=== PATIENT | male | born 1955 | race American Indian/Alaskan Native ===

== ENCOUNTER 2019-10-06 06:18 | Day surgery (SDC) | payer OTHER ==
[2019-10-06] MEDS ORDERED: SODIUM CHLORIDE 0.9% 1000 ML 1,000 ML IV SCH (07:00)
[2019-10-06] MEDS ORDERED: WATER FOR IRRIG STERILE 250 ML BOTTLE IR ONE (07:53)
--- NOTE | 2019-10-06 07:57 | Anesthesia Consultation ---
Anesthesia Consult and Med Hx Date of service: 10/06/19 - Airway Anesthetic Teeth Evaluation: Dentures ROM Head & Neck: Adequate Mental/Hyoid Distance: Adequate Mallampati Class: Class II Intubation Access Assessment: Probably Good - Pulmonary Exam CTA: Yes - Cardiac Exam Cardiac Exam: RRR - Pre-Operative Health Status ASA Pre-Surgery Classification: ASA2 Proposed Anesthetic Plan: MAC - Pulmonary Hx Smoking: No Hx Sleep Apnea: No (Snores heavily) - Cardiovascular System Hx Hypertension: No Hx Cardia Arrhythmia: No - Central Nervous System Hx Neuromuscular Disorder: No Hx Psychiatric Problems: No - Endocrine Hx Renal Disease: No Hx Insulin Dependent Diabetes: No Hx Non-Insulin Dependent Diabetes: No (Denies condition. Blood gucose- 140mg/dl) - Hematic Hx Anemia: No - Other Systems Hx Alcohol Use: Yes (Sparingly) Hx Substance Use: No Hx Obesity: Yes (BMI 42.3kg) - Additional Comments Anesthesia Medical History Comments: Patient denies previous anesthesia related complications.
--- NOTE | 2019-10-06 08:03 | Anesthesia Day of Surgery ---
Anesthesia Day of Surgery - Day of Surgery Patient Examined: No Patient H&P Reviewed: No Patient is NPO: No
[2019-10-06] MEDS ORDERED: PROPOFOL 200 MG/20 ML VIAL IV ONE ×2 (08:46)
[2019-10-06] MEDS ORDERED: LIDOCAINE (2%) 20 MG/1 ML VIAL 20 ML MDV INFILTRATI ONE (08:46)
--- NOTE | 2019-10-06 09:11 | Short Stay Summary ---
Short Stay Documentation Date of service: 10/06/19 Narrative H&P: Patient presents for screening colonoscopy. Denies gi complaints or prior colonoscopy. - History Past Medical History: other (no changes from office note) Past Surgical History: Other (no changes from office note) Social history: no significant social history - Allergies and Medications Current Medications: Allergies No Known Allergies Allergy (Verified 10/06/19 07:53) Home Medications Medication Instructions Recorded Confirmed Last Taken Type No Known Home Medications [No 10/06/19 10/06/19 Unknown History Reported Home Medications] Active Medications Sodium Chloride (Nacl 0.9% 1000 Ml) 1,000 mls @ 50 mls/hr IV DIRECT PAULA Last Admin: 10/06/19 07:55 Dose: 50 mls/hr Documented by: - Physical exam General appearance: no acute distress Lungs: Clear to auscultation Heart: Regular rate Gastrointestinal: normal - Brief post op/procedure progress note Date of procedure: 10/06/19 Pre-op diagnosis: Screening for colorectal cancer Post-op diagnosis: other (colon polyps x 3 removed, internal hemorrhoids) Procedure: Colonoscopy with snare polypectomy and cold biopsy polypectomy Anesthesia: MAC Findings: colon polyp x 3 removed internal hemorrhoids Surgeon: TROY CEJA Estimated blood loss: minimal Pathology: list (Jar A - transverse colon polyp, Jar B - descending colon polyp x 2) Specimen disposition: to lab - Disposition Condition at discharge: Good Disposition: DC-01 TO HOME OR SELFCARE Short Stay Discharge Plan Follow up with: IVAN DUTTA MD [Primary Care Provider] - 7 Days
--- NOTE | 2019-10-06 09:13 | Operative Report ---
Operative Report Operative Report: Colonoscopy Procedure Note with snare polypectomy and cold biopsy polypectomy Date of procedure: 10/06/2019 Endoscopist: Epifanio Estes Pre-op diagnosis: Screening for colorectal cancer Post-op diagnosis: Colon polyps, internal hemorrhoids Anesthesia: MAC Complications: No immediate complications Estimated blood loss: minimal Procedure: After consent was obtained, the patient was placed in the left lateral decubitus position. The olympus colonoscope was inserted into the patient's rectum under direct vision, and advanced to the cecum without difficulty. The patient tolerated the procedure well. The views of the mucosa were good. The quality of prep was good. The patient's vital signs were m onitored continuously throughout the procedure. Findings: There was an ~4 mm sessile polyp in the transverse colon. The polyp was removed with cold snare polypectomy and retrieved. There were two sessile polyps, ~2 mm in size, in the descending colon. Both polyps were removed with cold biopsy forceps and retrieved. Internal hemorrhoids were visualized on retroflexion view. Impression: 1. Colon polyp in transverse colon removed with cold snare polypectomy 2. Colon polyps x 2 in descending colon removed with cold biopsy forceps 3. Internal hemorrhoids Recommendations: -follow up pathology -repeat colonoscopy for surveillance in 3-5 years based on pathology results
[2019-10-06 09:58] VITALS: BP 122/72
--- NOTE | 2019-10-06 13:39 | Post Anesthesia Evaluation ---
- Post Anesthesia Evaluation Patient Participated: Yes Airway Patent: Yes Stable Respiratory Function: Yes Nausea/Vomiting: No Temp > 96.8F: Yes Pain Manageable: Yes Adequeate Hydration: Yes Anesthesia Complications: No Block Receding Appropriately: Not Applicable Patient on Ventilator: No
== END 2019-10-06 06:19 | disposition home or self-care (01) ==
LOC: GIO 06:18
PROVIDERS: ATTEND Internal Medicine Gastroenterology
DX: Z12.11 Encounter for screening for malignant neoplasm of colon (principal); D12.3 Benign neoplasm of transverse colon; D12.4 Benign neoplasm of descending colon; K64.8 Other hemorrhoids; E66.9 Obesity, unspecified; Z68.41 Body mass index [BMI] 40.0-44.9, adult; Z72.89 Other problems related to lifestyle; Z79.899 Other long term (current) drug therapy
CPT/HCPCS: 45380; 45385; 82962; 88305; J2704; J7030